=== PATIENT | female | born 1940 | race Caucasian/White ===

== ENCOUNTER 2025-05-03 08:14 | Emergency (ER) | payer MEDICARE, OTHER | END 2025-05-03 11:00 | disposition home or self-care (01) | LOC: ERS 08:14 | DX: S52.024A Nondisplaced fracture of olecranon process without intraarticular extension of right ulna, initial encounter for closed fracture (principal); E03.9 Hypothyroidism, unspecified; W19.XXXA Unspecified fall, initial encounter | CPT/HCPCS: 29105 ==